=== PATIENT | female | born 1955 | race Asian ===

== ENCOUNTER → 2019-01-02 | Outpatient (CLI) | payer BC ==
--- NOTE | 2019-01-02 11:38 | CONS ---
Assessment/Plan Assessment/Plan Hospital Course (Demo Recall) 63-year-old female with long-standing bilateral knee pain osteoarthritis with valgus deformity. Currently she tolerates her symptoms well. She wants to try additional conservative management however at this time she is not ready for injections and is deferring to later date. She would like to try an anti- inflammatory again. Recommending meloxicam 7.5 mg daily. We will give her 1 month supply of this after this she should talk to her primary care physician to make sure that it is okay she is on this chronically secondary to her hypertension. If this fails to help or she does not wish to take oral medication in more she will think about a steroid injection. We will also start physical therapy for bilateral knee osteoarthritis as well as distal IT band tendinitis Follow-up PRN Consultation Date/Type/Reason Admit Date/Time Date of Consultation: Jan 02, 2019 Reason for Consultation Bilateral knee Date/Time of Note DATE: 01/02/19 TIME: 11:32 Hx of Present Illness This Is a 63-year-old female with a chief complaint of right and left knee pain. The pain is worse in the left knee. The pain began approximately years ago. The patient's pain is in the lateral aspect of the right and left knee. Pain is not radiating to the lower leg. The pain is rated as a 5/10. Patient denies complaints of numbness or tingling. The pain is exacerbated by climbing stairs and ambulation. The patient used to take meloxicam in the past but no longer takes any NSAIDs. Of note she is lost 40 pounds over the past year to help her knee pain. She is currently not interested in injections or surgery. ----- Duration: Years Injury: No Walking tolerance: Not limited Limp: At times Support: No Swelling: No Crepitation: Yes Instability: No Stairs: Difficult Physical Therapy: None recently Injections: No NSAID's: Not currently Prior surgery: No Back pain: No Hip pain: No Risk of AVN : No Patient denies fever, chills, shortness of breath, chest pain, nausea/vomiting, constipation, diarrhea, numbness, and tingling. Past Medical History Hypertension Past Surgical History Past Surgical Hx: noncontributory Family History Significant Family History: no pertinent family hx Social History Alcohol Use: none Smoking Status: Never smoker Drug Use: none Exam/Review of Systems Exam Vitals Weight: 125 pounds Height: 5 foot 5 inches Temperature: 90 point Heart Rate: 73 Blood Pressure: 139/66 Respiratory Rate: 12 Exam General: Awake, alert, in no acute distress, pleasant and cooperative Heart: regular rhythm Lungs: breathing comfortably, no tachypnea or dyspnea MUSCULOSKELETAL: Right and Left Knee This is a well developed female who is alert, oriented times three and in no apparent distress. Skin is intact over the right and left knee as well as the lower extremity with no abrasions, lacerations, or ulcerations. Observation of the patient's gait reveals an antalgic gait with mild valgus thrust. Frontal plane alignment is valgus on the right and left knees. There is pain on pal pation of lateral joint line and distal IT band. The patient demonstrates grinding anteriorly with ROM. Range of motion: 10 extension to approximately 130 degrees of flexion. Collateral ligament testing reveals no instability with varus or valgus stress at 0 and 30 degrees of flexion. Valgus deformity partially correctable. Negative Marycarmen's and negative posterior drawer. Neurov ascularly intact with 5/5 EHL/tibialis anterior/gastroc. Sensation intact to light touch in a sural, saphenous, deep peroneal, superficial peroneal, medial and lateral plantar nerve distribution. Palpable, symmetric dorsalis pedis and posterior tibial pulses in both lower extremities. Hip examination normal Imaging Imaging The patient received a standard set of films today that were personally reviewed. Imaging included a standing bilateral knee AP, PA flexion, merchant views and a dedicated lateral of the affected knee: There is valgus alignment of the knee. There is complete loss of joint space in the lateral compartments bilaterally and mildmoderate loss of joint space medial and patellofemoral compartment(s). There is osteophyte formation. There is subchondral sclerosis. There are subchondral cysts. Degenerative changes are most severe in the lateral compartment(s) KALYANI GILL MD Jan 02, 2019 11:38
--- NOTE | 2019-01-03 14:24 | RADRPT ---
PROCEDURE: XR knees CLINICAL INDICATION: bilateral knee pain. TECHNIQUE: 4 weightbearing views of the 02/28/2018 were obtained. COMPARISON: None. FINDINGS: Right knee: There is no acute fracture dislocation. Osseous structures are intact. There are severe osteoarthritic changes of the knee, most notable at the lateral tibio-femoral and patellofemoral comp artments. Bones appear demineralized. There is a small knee joint effusion. Small calcifications dex cent to medial femoral condyle are unchanged. Left knee: There is no acute fracture dislocation. Osseous structures are intact. There are severe o steoarthritic changes of the knee, most notable at lateral tibio-femoral and patellofemoral compartme nts. There is no knee joint effusion. IMPRESSION: 1. Severe bilateral knee joint osteoarthritis. 2. Osteopenia. 3. Small right knee joint effusion. RPTAT:HAJM Physician Jeremias Date Time Electronically viewed and signed by Physician Jeremias on 01/03/2019 14:24 MARIANELA/
== END | disposition home or self-care (01) ==
LOC: HKI 08:45
PROVIDERS: ATTEND Orthopaedic Surgery Adult Reconstructive Orthopaedic Surgery
DX: M17.0 Bilateral primary osteoarthritis of knee (principal); I10 Essential (primary) hypertension
CPT/HCPCS: 73564; G0463